=== PATIENT | female | born 1985 | race Caucasian/White ===

== ENCOUNTER → 2018-08-06 | Outpatient (CLI) | payer MEDICARE, MEDICAID ==
[~2018-08-06] MED LIST: AMOXICILLIN875 MG PO; BACTRIM; BACTRIM DS TAB1 EACH PO; FLAGYL500 MG PO; FLEXERIL PO; IBUPROFEN 800800 MG PO; NORCO 5-325 TA1 EACH PO; PENICILLIN VK500 MG PO; ULTRAM 50MG TAB50 MG PO
== END ==
LOC: M.WC 09:30
DX: L59.8 Other specified disorders of the skin and subcutaneous tissue related to radiation (principal); C53.9 Malignant neoplasm of cervix uteri, unspecified; K52.0 Gastroenteritis and colitis due to radiation; K62.5 Hemorrhage of anus and rectum; K21.9 Gastro-esophageal reflux disease without esophagitis; N18.3 Chronic kidney disease, stage 3 (moderate); F32.9 Major depressive disorder, single episode, unspecified; Y84.2 Radiological procedure and radiotherapy as the cause of abnormal reaction of the patient, or of later complication, without mention of misadventure at the time of the procedure

== ENCOUNTER → 2018-08-10 | Outpatient (CLI) | payer MEDICARE, MEDICAID | LOC: M.WC 10:00 | DX: L59.8 Other specified disorders of the skin and subcutaneous tissue related to radiation (principal); C53.9 Malignant neoplasm of cervix uteri, unspecified; K52.0 Gastroenteritis and colitis due to radiation; K62.5 Hemorrhage of anus and rectum; K21.9 Gastro-esophageal reflux disease without esophagitis; N18.3 Chronic kidney disease, stage 3 (moderate); F32.9 Major depressive disorder, single episode, unspecified; F17.200 Nicotine dependence, unspecified, uncomplicated; Z95.5 Presence of coronary angioplasty implant and graft; Y84.2 Radiological procedure and radiotherapy as the cause of abnormal reaction of the patient, or of later complication, without mention of misadventure at the time of the procedure ==

== ENCOUNTER → 2018-08-27 | Outpatient (CLI) | payer MEDICARE, MEDICAID | LOC: M.WC 04:45 | DX: L59.8 Other specified disorders of the skin and subcutaneous tissue related to radiation (principal); C53.9 Malignant neoplasm of cervix uteri, unspecified; K21.9 Gastro-esophageal reflux disease without esophagitis; K52.0 Gastroenteritis and colitis due to radiation; K62.5 Hemorrhage of anus and rectum; N18.3 Chronic kidney disease, stage 3 (moderate); F17.200 Nicotine dependence, unspecified, uncomplicated; F32.9 Major depressive disorder, single episode, unspecified; Y84.2 Radiological procedure and radiotherapy as the cause of abnormal reaction of the patient, or of later complication, without mention of misadventure at the time of the procedure ==

== ENCOUNTER → 2018-09-11 | Outpatient (CLI) | payer MEDICARE, MEDICAID | LOC: M.WC 04:13 | DX: L59.8 Other specified disorders of the skin and subcutaneous tissue related to radiation (principal); C53.9 Malignant neoplasm of cervix uteri, unspecified; K52.0 Gastroenteritis and colitis due to radiation; K21.9 Gastro-esophageal reflux disease without esophagitis; K62.5 Hemorrhage of anus and rectum; N18.3 Chronic kidney disease, stage 3 (moderate); F17.200 Nicotine dependence, unspecified, uncomplicated; F32.9 Major depressive disorder, single episode, unspecified; Z85.41 Personal history of malignant neoplasm of cervix uteri; Y84.2 Radiological procedure and radiotherapy as the cause of abnormal reaction of the patient, or of later complication, without mention of misadventure at the time of the procedure ==

== ENCOUNTER → 2018-10-09 | Outpatient (CLI) | payer MEDICARE, MEDICAID | LOC: M.WC 07:00 | DX: L59.8 Other specified disorders of the skin and subcutaneous tissue related to radiation (principal); C53.9 Malignant neoplasm of cervix uteri, unspecified; K21.9 Gastro-esophageal reflux disease without esophagitis; K52.0 Gastroenteritis and colitis due to radiation; K62.5 Hemorrhage of anus and rectum; N18.3 Chronic kidney disease, stage 3 (moderate); F17.200 Nicotine dependence, unspecified, uncomplicated; F32.9 Major depressive disorder, single episode, unspecified; Y84.2 Radiological procedure and radiotherapy as the cause of abnormal reaction of the patient, or of later complication, without mention of misadventure at the time of the procedure ==

== ENCOUNTER → 2018-11-06 | Outpatient (CLI) | payer MEDICARE, MEDICAID | LOC: M.WC 05:08 | DX: L59.8 Other specified disorders of the skin and subcutaneous tissue related to radiation (principal); K52.0 Gastroenteritis and colitis due to radiation; K21.9 Gastro-esophageal reflux disease without esophagitis; N18.3 Chronic kidney disease, stage 3 (moderate); F32.9 Major depressive disorder, single episode, unspecified; F17.200 Nicotine dependence, unspecified, uncomplicated; Y84.2 Radiological procedure and radiotherapy as the cause of abnormal reaction of the patient, or of later complication, without mention of misadventure at the time of the procedure ==

== ENCOUNTER → 2018-11-26 | Outpatient (CLI) | payer MEDICARE, MEDICAID | LOC: M.WC 05:19 | DX: L59.8 Other specified disorders of the skin and subcutaneous tissue related to radiation (principal); K52.0 Gastroenteritis and colitis due to radiation; K21.9 Gastro-esophageal reflux disease without esophagitis; F32.9 Major depressive disorder, single episode, unspecified; Z85.41 Personal history of malignant neoplasm of cervix uteri; Y84.2 Radiological procedure and radiotherapy as the cause of abnormal reaction of the patient, or of later complication, without mention of misadventure at the time of the procedure ==

== ENCOUNTER 2019-07-06 11:11 | Emergency (ER) | payer MEDICARE, OTHER, MEDICAID ==
[~2019-07-06] VITALS: Ht 162.6 cm; Wt 90.7 kg
[2019-07-06] MEDS ORDERED: TUMS200 MG PO (11:19)
[2019-07-06] MEDS ORDERED: OMEPRAZOLE 20 M20 M1 PO (11:19)
[2019-07-06 13:10] VITALS: BP 129/87
== END 2019-07-06 13:11 | disposition home or self-care (01) ==
LOC: M.ERS 11:11
DX: F41.9 Anxiety disorder, unspecified (principal); K21.9 Gastro-esophageal reflux disease without esophagitis; F17.210 Nicotine dependence, cigarettes, uncomplicated; Z88.5 Allergy status to narcotic agent; Z88.6 Allergy status to analgesic agent